=== PATIENT | female | born 1955 | race Caucasian/White ===

== ENCOUNTER 2016-08-09 13:56 | Emergency (ER) | payer OTHER ==
[2016-08-09] MEDS ORDERED: FLUORESCEIN STRIP 1 MG/STRIP STRIP ONE (14:51)
[2016-08-09] MEDS ORDERED: TETRACAINE 0.5% OPHTH 15 ML BOTTLE ONE (14:51)
--- NOTE | 2016-08-09 16:08 | ER NURSING DOCUMENTATION ---
Nurse's Notes [facility] Name:Myesha Jeffery Age:60 yrs Sex:Female :1955 Arrival Date:08/09/2016 Time:13:56 Bed2 Private MD: Diagnosis:Conjunctivitis;Viral Conjunctivitis Presentation: 08/09 13:59 Acuity: JYOTHI 4 rh 14:27 Presenting complaint: Patient states: R eye pain and discharge. Transition of care: lp Home. 14:27 Method Of Arrival: Private Vehicle lp Triage Assessment: 14:32 General: Appears in no apparent distress, Behavior is appropriate for age. Pain: lp Complains of pain in right eye. Historical: - Allergies: Bactrim; Sulfa (Sulfonamide Antibiotics); - Home Meds: 1. levothyroxine 112 mcg oral cap 1 cap once daily 2. anastrozole 1 mg oral tab 1 tab once daily for Hormone Receptor Positive Breast Cancer 3. escitalopram 20 mg oral tab 1 tab once daily 4. bupropion HCl 300 mg oral Tb24 1 tab once daily 5. aspirin 325 mg oral tab 1 tab once daily 6. Multiple Vitamins oral tab daily - PMHx: gastric Bypass; Tinnitus; Shoulder Impingment; Nephrolithiasis; Necrotizing fascitis; CELLULITIS; Mastectomy; Panniculectomy; L femoral Nerve neuropathy; - PSHx: MASTECTOMY, LEFT; MASTECTOMY, RIGHT; Panniculectomy; - Tetanus: < 10 years. - Ebola Screening: : Patient negative for fever greater than or equal to 101.5 degrees Fahrenheit, and additional compatible Ebola Virus Disease symptoms. Patient denies exposure to infectious person. Patient denies travel to an Ebola-affected area in the 21 days before illness onset. . - Immunization history: Pneumococcal vaccine is up to date, Flu Vaccine < 1 year. - Social history: Smoking status: Patient states was never smoker of tobacco. Screenin:33 Infectious Disease Risk None. Abuse screen: Denies threats or abuse. Denies injuries lp from another. Nutritional screening: No deficits noted. Assessment: 14:33 See Triage Assessment done by same RN. lp Vital Signs: 14:32 BP 145 / 93; Pulse 87; Resp 14; Temp 97.3(TE); Pulse Ox 95% on R/A; Weight 90.72 kg; lp Height 5 ft. 5 in. (165.10 cm); Pain 1/10; 14:32 Body Mass Index 33.28 (90.72 kg, 165.10 cm) lp Visual Acuity: 15:57 Left Eye Visual acuity 20/25, ; Right Eye Visual acuity 20/40, ; Both Eyes Visual rh acuity 20/20; With Lenses; ED Course: 13:59 Patient arrived in ED. dp 13:59 Triage completed. rh 14:27 Deysi Ramirez RN is Primary Nurse. lp 14:32 Mauri Wei MD is Attending Physician. tl1 14:[address] Wei notified. lp 14:33 Valuables Remains with patient Patient has correct armband on for positive lp identification. Placed in gown. Bed in low position. Call light in reach. Side rails up X 1. Administered Medications: 15:52 Drug: Fluorescein Strip 1 strip; Route: Ophthalmic; Site: right eye; lp 15:53 Drug: Tetracaine Drops 0.5 % 1 drops; Route: Ophthalmic; Site: right eye; lp Outcome: 15:52 Discharged to home ambulatory. lp 15:52 Condition: good 15:52 Instructed on discharge instructions, follow up and referral plans. 15:56 Discharge ordered by . tl1 16:08 Patient left the ED. lp 08/11 13:16 Discharge F/U Call: Unable to reach: left voicemail: rh Signatures: Deysi Ramirez RN RN Mauri Wei MD MD tl1 Jade Heck rh Mic, Devika dp
--- NOTE | 2016-08-11 16:08 | ER PHYSICIAN DOCUMENTATION ---
Physician Documentation [facility] Name:Myesha Jeffery Age:60 yrs Sex:Female :1955 Arrival Date:08/09/2016 Time:13:56 Bed2 Private MD: Mauri Weston Disposition: 08/09/16 15:56 Discharged to Home/Self Care. Impression: Conjunctivitis, Viral Conjunctivitis. - Condition is Good. - Discharge Instructions: CONJUNCTIVITIS, Allergic, CONJUNCTIVITIS, Non-Specific, CONJUNCTIVITIS, Viral. - Prescriptions for Acular 0.5 % Ophthalmic Drops - instill 1 drop by OPHTHALMIC route every 6 hours into affected eye(s); 5 milliliter. - Medical Reconciliation form form. - Follow up: Private Physician; When: 4- 6 days; Reason: Recheck today's complaints. - Problem is new. - Symptoms are unchanged. HPI: 08/09 15:30 This 60 yrs old Female presents to ER via Private Vehicle with complaints of tl1 Eye Pain - RIGHT. 15:30 The patient is experiencing pain, redness, to the right eye. Onset: The tl1 symptom(s)/episode began/occurred gradually, yesterday. Duration: the symptoms are continuous. Associated signs and symptoms: Pertinent positives: None. Pertinent negatives: None. Severity of symptoms: At their worst the symptoms were very mild in the emergency department the symptoms are unchanged. The patient has not experienced similar symptoms in the past. Historical: - Allergies: Bactrim; Sulfa (Sulfonamide Antibiotics); - Home Meds: 1. levothyroxine 112 mcg oral cap 1 cap once daily 2. anastrozole 1 mg oral tab 1 tab once daily for Hormone Receptor Positive Breast Cancer 3. escitalopram 20 mg oral tab 1 tab once daily 4. bupropion HCl 300 mg oral Tb24 1 tab once daily 5. aspirin 325 mg oral tab 1 tab once daily 6. Multiple Vitamins oral tab daily - PMHx: gastric Bypass; Tinnitus; Shoulder Impingment; Nephrolithiasis; Necrotizing fascitis; CELLULITIS; Mastectomy; Panniculectomy; L femoral Nerve neuropathy; - PSHx: MASTECTOMY, LEFT; MASTECTOMY, RIGHT; Panniculectomy; - Tetanus: < 10 years. - Ebola Screening: : Patient negative for fever greater than or equal to 101.5 degrees Fahrenheit, and additional compatible Ebola Virus Disease symptoms. Patient denies exposure to infectious person. Patient denies travel to an Ebola-affected area in the 21 days before illness onset. . - Immunization history: Pneumococcal vaccine is up to date, Flu Vaccine < 1 year. - Social history: Smoking status: Patient states was never smoker of tobacco. ROS: 15:30 Eyes: Positive for pain, redness, Negative for blurry vision, vision loss. tl1 15:30 All other systems are negative. Exam: 15:30 Visual Acuity: I have reviewed the nursing documentation. tl1 15:30 Eyes: Periorbital structures: appear normal, Pupils: no acute changes, equal, round, and reactive to light and accomodation, Extraocular movements: intact throughout, Conjunctiva: injected, in the right eye, in the left eye, Corneas: no acute changes, no evidence of abrasion, a fluorescein strip employed to appreciate the findings, Anterior chamber: normal, Lids and lashes: appear normal, Nystagmus: is not appreciated, a slit lamp exam was employed for the exam. 15:30 ENT: Exam is negative for acute changes. 15:30 Neck: ROM/movement: is normal, is supple. 15:30 Cardiovascular: Rate: normal. 15:30 Respiratory: Respirations: normal. 15:30 Neuro: Exam negative for acute changes. Vital Signs: 14:32 BP 145 / 93; Pulse 87; Resp 14; Temp 97.3(TE); Pulse Ox 95% on R/A; Weight 90.72 kg; lp Height 5 ft. 5 in. (165.10 cm); Pain 1/10; 14:32 Body Mass Index 33.28 (90.72 kg, 165.10 cm) lp Visual Acuity: 15:57 Left Eye Visual acuity 20/25, ; Right Eye Visual acuity 20/40, ; Both Eyes Visual rh acuity 20/20; With Lenses; MDM: 14:32 Patient medically screened. tl1 Dispensed Medications: 15:52 Drug: Fluorescein Strip 1 strip; Route: Ophthalmic; Site: right eye; lp 15:53 Drug: Tetracaine Drops 0.5 % 1 drops; Route: Ophthalmic; Site: right eye; lp Signatures: Deysi Ramirez RN RN lp Roberts, Leslie, RN RN lpr Leigh, Tom, MD MD tl1
== END 2016-08-09 16:08 | disposition home or self-care (01) ==
LOC: ER 13:56
DX: B30.9 Viral conjunctivitis, unspecified (principal); Z79.82 Long term (current) use of aspirin; Z85.3 Personal history of malignant neoplasm of breast; Z79.899 Other long term (current) drug therapy
CPT/HCPCS: 99283